=== PATIENT | female | born 1950 | race Caucasian/White ===

== ENCOUNTER 2018-08-12 12:47 | Emergency (ER) | payer MEDICARE, BC ==
[2018-08-12 14:19] VITALS: BP 124/71
--- NOTE | 2018-08-12 14:27 | UC ---
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 TAKING IBUPROFEN PRN W/ FEVER RELIEF- LAST DOSE TODAY 914. " -here w/ her . + COPD hx. uses anuro. has alb but never uses it. has not used w/ this illness. -sx x 5 days. + fatigue. has trotter dpneumonia many yrs ago -here w/ her . - History of Current Complaint Chief Complaint: UCRespiratory Stated Complaint: COUGH/FEVER Time Seen by Provider: 08/12/18 14:15 Pain Intensity: 0 - Allergies/Home Medications Allergies/Adverse Reactions: Allergies Allergy/AdvReac Type Severity Reaction Status Date / Time moxifloxacin [From Avelox] Allergy Rash Verified 08/12/18 14:11 Home Medications: Home Medications Atorvastatin* [Lipitor 10 MG*] 1 tab QPM 08/12/18 [History Confirmed 08/12/18] Cholecalciferol TAB* [Vitamin D TAB*] 2,000 unit DAILY 08/12/18 [History Confirmed 08/12/18] Olmesartan Medoxomil 40 mg PO DAILY 08/12/18 [History Confirmed 08/12/18] Omeprazole 20 mg PO DAILY 08/12/18 [History Confirmed 08/12/18] Umeclidin/Vilant 62.5 MDI(NF) [ANORO 62.5/25 Ellipta DEVICE (NF)] 1 puff DAILY 08/12/18 [History Confirmed 08/12/18] amLODIPine TAB* [Norvasc 5 mg TAB*] 1 tab QPM 08/12/18 [History Confirmed ] PMH/Surg Hx/FS Hx/Imm Hx Previously Healthy: Yes Cardiovascular History: Hypertension Respiratory History: COPD - Surgical History Surgical History: None - Family History Known Family History: Positive: Hypertension - Social History Alcohol Use: Occasionally Substance Use Type: None Smoking Status (MU): Heavy Every Day Tobacco Smoker Type: Cigarettes Amount Used/How Often: 1 PPD Length of Time of Smoking/Using Tobacco: 40 years Review of Systems All Other Systems Reviewed And Are Negative: Yes Constitutional: Positive: Fever, Fatigue Skin: Positive: Negative Eyes: Positive: Negative ENT: Positive: Negative Respiratory: Positive: Cough Cardiovascular: Positive: Negative Gastrointestinal: Positive: Negative Genitourinary: Positive: Negative Motor: Positive: Negative Neurovascular: Positive: Negative Musculoskeletal: Positive: Negative Neurological: Positive: Negative Psychological: Positive: Negative Is Patient Immunocompromised?: No Physical Exam Triage Information Reviewed: Yes Appearance: Well-Appearing, No Pain Distress, Well-Nourished - very pleasant. good historian Vital Signs: Initial Vital Signs Temp 97.7 F 08/12/18 14:10 Pulse 84 08/12/18 14:10 Resp 16 08/12/18 14:10 BP 124/71 08/12/18 14:10 Pulse Ox 91 08/12/18 14:10 Vital Signs Reviewed: Yes Eye Exam: Normal ENT Exam: Normal ENT: Positive: Pharynx normal, TMs normal, Uvula midline. Negative: Nasal congestion, Tonsillar swelling, Tonsillar exudate, Hoarse voice, Sinus tenderness Neck exam: Normal Neck: Positive: Supple, Nontender, No Lymphadenopathy Respiratory Exam: Normal Respiratory: Positive: No respiratory distress, No accessory muscle use, Decreased breath sounds, Wheezing - mild b/l exp wheezing Cardiovascular Exam: Normal Cardiovascular: Positive: RRR, No Murmur Abdominal Exam: Normal Abdomen Description: Positive: Nontender, Soft Musculoskeletal Exam: Normal Neurological Exam: Normal Psychological Exam: Normal Skin Exam: Normal Respiratory Course/Dx - Course Course Of Treatment: CXR - neg pneumonia. no nodules. pulm HTN -doxy x 10 d -use alb q4-6 hrs - Differential Dx/Diagnosis Differential Diagnosis/HQI/PQRI: Bronchitis, Exacerbation Of COPD, Lower Resp Infection, Sinusitis Provider Diagnosis: COPD exacerbation Discharge - Sign-Out/Discharge Documenting (check all that apply): Patient Departure All imaging exams completed and their final reports reviewed: Yes - Discharge Plan Condition: Stable Disposition: HOME Prescriptions: Albuterol HFA INHALER* [Ventolin HFA Inhaler*] 2 puff INH Q4H PRN #1 mdi PRN Reason: Cough Doxycycline Monohydrate 100 mg PO BID #20 cap Patient Education Materials: COPD (Chronic Obstructive Pulmonary Disease) (ED) Referrals: Roxi SOMMERS,Damion Cortez [Primary Care Provider] - Additional Instructions: The chest xray shows no pneumonia. It does show some changes of emphysema and possibly some pulmonary hypertension. This is something you should follow up with your PCP about. Caution about sun exposure while on the doxy. You should follow up sooner if your symptoms increase or persist. Make sure to take a probiotic daily while on antibiotics to help prevent a potential complication of antibiotic use called c diff. Some well known brands that can be found OTC are florastor, align and Simplesurance. Make sure to complete the entire prescription unless advised otherwise by your health care provider - Billing Disposition and Condition Condition: STABLE Disposition: Home
== END 2018-08-12 15:20 | disposition home or self-care (01) ==
LOC: UCCORT 12:47
DX: J44.1 Chronic obstructive pulmonary disease with (acute) exacerbation (principal); F17.210 Nicotine dependence, cigarettes, uncomplicated; I10 Essential (primary) hypertension; R50.9 Fever, unspecified; Z88.1 Allergy status to other antibiotic agents; Z79.899 Other long term (current) drug therapy
CPT/HCPCS: 71046; 99202; G0463